=== PATIENT | female | born 1965 | race Caucasian/White ===

== ENCOUNTER 2017-11-04 20:38 | Emergency (ER) | payer OTHER, MEDICAID ==
[~2017-11-04] VITALS: Ht 170.2 cm; Wt 101.8 kg
[2017-11-04 20:41] VITALS: BP 109/70
--- NOTE | 2017-11-04 20:50 | NUR ---
PT RETURNED TO LOBBY AFTER EKG DONE
[2017-11-04] MEDS ORDERED: NITROGLYCERIN 0.4 MG TAB SL ONE (20:55)
[2017-11-04] MEDS ORDERED: ASPIRIN 325 MG TAB PO ONE (20:55)
--- NOTE | 2017-11-04 20:55 | NUR ---
52/F WITH C/O 10/10 SHARP CHEST PAIN, MIDSTERNAL, CONSTANT, NONRADIATING, NONPROVOKED X 7 DAYS. DENIES SOB/COUGH, SATS 100%RA, ALL LUNG SOUNDS CBTA. DENIES N/V/D. 86 HR EVEN AND REGULAR. DENIES ANY OTHER PAIN/INJURIES. PT PLACED ON UROLOGY PHYSICIAN AND PULSE OX PMH: SCIATICA, CHRONIC BACK PAIN
--- NOTE | 2017-11-04 21:00 | NUR ---
Patient appears to be resting comfortably in bed. Vital Signs within normal limits. Respirations even and unlabored.
[2017-11-04] MEDS ORDERED: CYCLOBENZAPRINE 10 MG TAB PO ONE (21:15)
[2017-11-04] MEDS ORDERED: KETOROLAC 30 MG/ML VIAL IM ONE (21:15)
[2017-11-04 21:19] LABS: BASOPHILS # (AUTO) 0.2 K/uL (0.00-0.22); BASOPHILS % (AUTO) 2.2 % (0.0-2.0); EOSINOPHILS # (AUTO) 0.2 K/uL (0-0.4); EOSINOPHILS % (AUTO) 2.1 % (0.0-4.0); HEMATOCRIT 35.3 % (36-48); HEMOGLOBIN 11.6 g/dL (12.0-16.0); LYMPHOCYTES % (AUTO) 19.9 % (20.5-51.1); MEAN CORPUSCULAR HEMOGLOBIN 28 pg (27-31); MEAN CORPUSCULAR HGB CONC 33 g/dL (33-37); MEAN CORPUSCULAR VOLUME 85 fL (80-94); MONOCYTES % (AUTO) 9.6 % (1.7-9.3); NEUTROPHILS # (AUTO) 6.6 K/uL (1.8-7.7); NEUTROPHILS % (AUTO) 66.2 % (42.2-75.2); PLATELET COUNT (AUTO) 275 K/uL (140-450); RED BLOOD CELL COUNT(AUTO) 4.15 MIL/uL (4.20-5.40); RED CELL DISTRIBUTION WIDTH 13.1 % (11.6-13.7)
[2017-11-04 21:31] LABS: ANION GAP 15.2 (8-16); CARBON DIOXIDE 25.2 mmol/L (21-32); CREATININE 1.5 mg/dL (0.6-1.3); POTASSIUM 3.4 mmol/L (3.5-5.1)
[2017-11-04] MEDS ORDERED: NACL 0.9% 1,000 ML IV ONE (21:35)
[2017-11-04] MEDS ORDERED: POTASSIUM CHLORIDE 20% 40 MEQ/15 ML UDC PO ONE (21:35)
[2017-11-04 21:36] LABS: ALBUMIN 3.7 g/dL (3.4-5.0); TOTAL BILIRUBIN 0.2 mg/dL (0.0-1.0)
[2017-11-04 22:50] VITALS: BP 113/68
--- NOTE | 2017-11-04 22:50 | NUR ---
Patient discharged with v/s stable. Written and verbal after care instructions given and explained. Patient verbalized understanding. Ambulatory with steady gait. All questions addressed prior to discharge. Advised to follow up with PMD.
== END 2017-11-04 22:50 | disposition home or self-care (01) ==
LOC: MED 20:38
DX: G89.29 Other chronic pain (principal); R09.89 Other specified symptoms and signs involving the circulatory and respiratory systems; M54.9 Dorsalgia, unspecified; Z76.5 Malingerer [conscious simulation]; Z88.8 Allergy status to other drugs, medicaments and biological substances
CPT/HCPCS: 36415; 71010; 80053; 83880; 84484; 85025; 93005; 99285; J1885; J7030; Q0092

== ENCOUNTER 2019-04-26 22:50 | Emergency (ER) | payer OTHER, MEDICAID ==
[~2019-04-26] VITALS: Ht 170.2 cm; Wt 91.2 kg
[2019-04-26 22:54] VITALS: BP 127/78
--- NOTE | 2019-04-26 23:02 | NUR ---
PT AMBULATED BACK TO LOBBYHERBIE
--- NOTE | 2019-04-26 23:12 | NUR ---
PT TAKEN TO BED 3
--- NOTE | 2019-04-26 23:30 | NUR ---
PT BIB SELF C/O NECK PAIN. PT STATES SUDDEN ONSET OF NECK PAIN THAT STARTED TODAY; DENIES INJURY OR TRAUMA; STATES 7/10 SHARP PAIN; NO SWELLING OR REDNESS TO SIGHT. PT ACTING APPRORPRIATLY, SPEAKING IN CLEAR AND COMPLETE SENTENCES; PATENT AIRYWAY. SAFETY PRECAUTIONS IN PLACE. PENDING JOSE ALEJANDRO HUNTLEY. PMH: ASTHMA, HTN
[2019-04-26] MEDS ORDERED: KETOROLAC 30 MG/ML VIAL IVP ONE (23:50)
[2019-04-26] MEDS ORDERED: DIAZEPAM 5 MG TAB PO ONE (23:50)
[2019-04-26] MEDS ORDERED: NACL 0.9% 1,000 ML IV ONE (23:50)
[2019-04-27 00:18] LABS: BASOPHILS % (AUTO) 0.6 % (0.0-2.0); EOSINOPHILS # (AUTO) 0.2 K/uL (0-0.4); EOSINOPHILS % (AUTO) 3.8 % (0.0-4.0); HEMATOCRIT 34.7 % (36-48); HEMOGLOBIN 11.2 g/dL (12.0-16.0); LYMPHOCYTES # (AUTO) 2.2 K/uL (2.5-16.5); LYMPHOCYTES % (AUTO) 36.5 % (20.5-51.1); MEAN CORPUSCULAR HEMOGLOBIN 28 pg (27-31); MEAN CORPUSCULAR HGB CONC 32 g/dL (33-37); MEAN CORPUSCULAR VOLUME 85.6 fL (80-94); MONOCYTES # (AUTO) 0.6 K/uL (0.8-1.0); MONOCYTES % (AUTO) 9.7 % (1.7-9.3); NEUTROPHILS # (AUTO) 2.9 K/uL (1.8-7.7); NEUTROPHILS % (AUTO) 49.4 % (42.2-75.2); PLATELET COUNT (AUTO) 209 K/uL (140-450); RED BLOOD CELL COUNT(AUTO) 4.06 MIL/uL (4.20-5.40); RED CELL DISTRIBUTION WIDTH 15.5 % (11.6-13.7); WHITE BLOOD COUNT (AUTO) 5.9 K/uL (4.8-10.8)
[2019-04-27 00:27] LABS: ANION GAP 11.4 (8-16); CARBON DIOXIDE 27.1 mmol/L (21-32); CREATININE 0.7 mg/dL (0.6-1.3); POTASSIUM 3.5 mmol/L (3.5-5.1)
[2019-04-27 00:32] LABS: ALBUMIN 3.5 g/dL (3.4-5.0); TOTAL BILIRUBIN 0.3 mg/dL (0.0-1.0)
--- NOTE | 2019-04-27 01:00 | NUR ---
ATTEMPT AT PIV MADE. UNSUCCESSFUL. NURSE AT BEDSIDE FOR ATTEMPT.
--- NOTE | 2019-04-27 02:15 | NUR ---
IV START BY RESIDENCE TO L BRACHIAL 20G, FLUSHED WELL W/O RESISTANCE; NO SWELLING OR REDNESS NOTED; PT STATES 0/10 PAIN TO SIGHT.
--- NOTE | 2019-04-27 03:10 | NUR ---
PT TAKEN TO CT
--- NOTE | 2019-04-27 03:33 | NUR ---
PT RETURN FROM CT
--- NOTE | 2019-04-27 04:56 | NUR ---
Patient discharged with v/s stable. Patient acting appropriatly, speaking in clear and complete sentences, states she is ready to go home so she can sleep, pain 3/10 at this time. Written and verbal after care instructions given and explained. Patient alert, oriented and verbalized understanding of instructions. Ambulatory with steady gait. All questions addressed prior to discharge. ID band removed. Patient advised to follow up with PMD. Rx of Valium, and Naprosyn given. Patient educated on indication of medication including possible reaction and side effects. Opportunity to ask questions provided and answered.
[2019-04-27 05:45] VITALS: BP 150/90
--- NOTE | 2019-04-28 13:14 | NUR ---
Late entry. Confirmed with RN that 1000 ml 0.9NS IV completed at 0320
== END 2019-04-27 04:56 | disposition home or self-care (01) ==
LOC: MED 22:50
DX: M54.12 Radiculopathy, cervical region (principal); J45.909 Unspecified asthma, uncomplicated; I10 Essential (primary) hypertension; Z98.890 Other specified postprocedural states; Z88.5 Allergy status to narcotic agent; Z88.6 Allergy status to analgesic agent; Z88.8 Allergy status to other drugs, medicaments and biological substances
CPT/HCPCS: 36415; 70491; 80053; 85025; 96374; 99284; J1885; J7030; Q9967

== ENCOUNTER 2021-06-03 10:22 | Emergency (ER) | payer OTHER, MEDICAID ==
[~2021-06-03] VITALS: Ht 170.2 cm; Wt 96.2 kg
[2021-06-03 10:38] VITALS: BP 157/111
--- NOTE | 2021-06-03 10:44 | NUR ---
Patient ambulated to bed 9 with family. RN evaluating the patient at bedside.
--- NOTE | 2021-06-03 10:45 | NUR ---
Pt presents to ED c/o chest pain and shortness of breathe x1 month worsening today. Pt report CP is sharp constant, non radiating. Pain level 8/10. Respirations even and unlabored. O2 saturation 98% on RA. Pt awake and alert. A&Ox4. VSS. Pt on cardiac tele monitor. Bed in lowest position, hob elevated, bed rail up x1. Allergies: acetaminophen, hydrocodone, baclofen, phenothyazine, tramadol Med hx: pain syndrome, chronic right knee pain, asthma, HTN
--- NOTE | 2021-06-03 10:49 | NUR ---
EMT at bedside for EKG
--- NOTE | 2021-06-03 11:03 | NUR ---
MD Samaniego evaluating pt at bedside
[2021-06-03] MEDS ORDERED: ONDANSETRON 4 MG/2 ML VIAL IVP ONE (11:15)
[2021-06-03] MEDS ORDERED: NACL 0.9% 1,000 ML IV ONE (11:15)
[2021-06-03] MEDS ORDERED: MORPHINE SULFATE 4 MG/ML SYR IVP ONE ×2 (11:15→11:30)
--- NOTE | 2021-06-03 11:15 | NUR ---
Pt refusing Morphine. MD Samaniego made aware. Awaiting for new orders.
--- NOTE | 2021-06-03 11:24 | NUR ---
Pt refusing Fentanyl medication. MD Samaniego made aware.
[2021-06-03] MEDS ORDERED: fentaNYL citrate 0.05 MG/ML VIAL IVP ONE (11:25)
[2021-06-03 11:31] LABS: BASOPHILS % (AUTO) 0.3 % (0.0-2.0); EOSINOPHILS # (AUTO) 0.3 K/uL (0-0.4); EOSINOPHILS % (AUTO) 3.1 % (0.0-4.0); HEMATOCRIT 32.6 % (36-48); HEMOGLOBIN 10.5 g/dL (12.0-16.0); MEAN CORPUSCULAR HEMOGLOBIN 29 pg (27-31); MEAN CORPUSCULAR HGB CONC 32 g/dL (33-37); MEAN CORPUSCULAR VOLUME 88.8 fL (80-94); MONOCYTES # (AUTO) 0.7 K/uL (0.8-1.0); MONOCYTES % (AUTO) 7.4 % (1.7-9.3); NEUTROPHILS # (AUTO) 6.4 K/uL (1.8-7.7); NEUTROPHILS % (AUTO) 68.2 % (42.2-75.2); PLATELET COUNT (AUTO) 237 K/uL (140-450); RED BLOOD CELL COUNT(AUTO) 3.67 MIL/uL (4.20-5.40); RED CELL DISTRIBUTION WIDTH 14.7 % (11.6-13.7); WHITE BLOOD COUNT (AUTO) 9.4 K/uL (4.8-10.8)
--- NOTE | 2021-06-03 11:45 | NUR ---
Unable to successfully attempt IV. MD Samaniego made aware.
[2021-06-03 11:46] LABS: ALBUMIN 3.5 g/dL (3.4-5.0); ANION GAP 10.3 (8-16); CARBON DIOXIDE 24.5 mmol/L (21-32); CREATININE 0.7 mg/dL (0.6-1.3); POTASSIUM 3.8 mmol/L (3.5-5.1); TOTAL BILIRUBIN 0.2 mg/dL (0.0-1.0)
[2021-06-03] MEDS ORDERED: MORPHINE SULFATE 4 MG/ML SYR IM ONE (11:50)
--- NOTE | 2021-06-03 11:50 | NUR ---
MD Samaniego gave verbal order to give Zofran 4mg IM and Morphine 4mg IM.
[2021-06-03] MEDS ORDERED: ONDANSETRON 4 MG/2 ML VIAL IM ONE (11:55)
--- NOTE | 2021-06-03 12:11 | NUR ---
Pt to CT via wheelchair
--- NOTE | 2021-06-03 12:27 | NUR ---
Pt back from CT
--- NOTE | 2021-06-03 12:27 | NUR ---
Patient returned from CT scan.
--- NOTE | 2021-06-03 12:35 | NUR ---
Pt placed on cardiac tele monitor. VSS. Pt requesting to speak to MD Samaniego.
--- NOTE | 2021-06-03 12:37 | NUR ---
Pt going to CT via wheelchair
--- NOTE | 2021-06-03 12:55 | NUR ---
Pt back from CT
--- NOTE | 2021-06-03 13:05 | NUR ---
PATIENT IS COMPLAINING OF SHOULDERS FEELING LIKE THEY ARE TIGHTENING, PATIENT IS SHRUGGING SHOULDERS, ENCOURAGED TO RELAX, WARM BLANKET APPLIED FOR COMFORT.
--- NOTE | 2021-06-03 13:21 | NUR ---
DR CASTILLO AT BEDSIDE FOR REEVAL, DISCUSSING RESULTS AND PLAN OF CARE
--- NOTE | 2021-06-03 13:38 | NUR ---
Heel warmers applied to pt shoulders
[2021-06-03] MEDS ORDERED: ACET-8386 PO (13:49)
[2021-06-03] MEDS ORDERED: AZIT250T4 PO (13:49)
[2021-06-03] MEDS ORDERED: CYCL-711 PO (13:49)
[2021-06-03] MEDS ORDERED: ONDA-24 PO (13:49)
[2021-06-03 14:01] VITALS: BP 171/91
== END 2021-06-03 14:05 | disposition home or self-care (01) ==
LOC: MED 10:22
DX: J18.9 Pneumonia, unspecified organism (principal); G89.29 Other chronic pain; D17.1 Benign lipomatous neoplasm of skin and subcutaneous tissue of trunk; J45.909 Unspecified asthma, uncomplicated; I10 Essential (primary) hypertension; Z79.899 Other long term (current) drug therapy; Z88.8 Allergy status to other drugs, medicaments and biological substances; Z88.5 Allergy status to narcotic agent; Z88.6 Allergy status to analgesic agent
CPT/HCPCS: 36415; 71250; 74176; 80053; 84484; 85025; 93005; 96372; 99285; J2270; J2405

== ENCOUNTER 2022-07-20 02:29 | Emergency (ER) | payer OTHER, MEDICAID ==
[~2022-07-20] VITALS: Ht 170.2 cm; Wt 90.7 kg
[~2022-07-20 02:29] MED LIST: ACET-8386 PO; AZIT250T4 PO; CYCL-711 PO; ONDA-188 PO
[2022-07-20 02:33] VITALS: BP 130/73
--- NOTE | 2022-07-20 02:33 | NUR ---
to bed via wheelchair
--- NOTE | 2022-07-20 02:44 | NUR ---
rt leg pain,and swelling, back since jul 09
[2022-07-20] MEDS ORDERED: IBUPROFEN 800 MG TAB PO ONE (03:15)
--- NOTE | 2022-07-20 03:23 | NUR ---
PT TO XRAY VIA WC
--- NOTE | 2022-07-20 03:40 | NUR ---
RETURNED FROM X-RAY
[2022-07-20] MEDS ORDERED: IBUP-1878 PO (04:09)
[2022-07-20 04:23] VITALS: BP 130/73
--- NOTE | 2022-07-20 04:23 | NUR ---
Patient discharged with v/s stable. Written and verbal after care instructions given and explained. Patient verbalized understanding. Wheel Chair Assisted with to car. All questions addressed prior to discharge. Advised to follow up with PMD.
== END 2022-07-20 04:23 | disposition home or self-care (01) ==
LOC: MED 02:29
DX: S89.91XA Unspecified injury of right lower leg, initial encounter (principal); J45.909 Unspecified asthma, uncomplicated; I10 Essential (primary) hypertension; Z88.5 Allergy status to narcotic agent; Z88.6 Allergy status to analgesic agent; Z88.8 Allergy status to other drugs, medicaments and biological substances; Z79.899 Other long term (current) drug therapy; V89.2XXA Person injured in unspecified motor-vehicle accident, traffic, initial encounter; Y93.89 Activity, other specified; Y92.89 Other specified places as the place of occurrence of the external cause; Y99.8 Other external cause status
CPT/HCPCS: 73562; 99283

== ENCOUNTER 2022-12-05 16:07 | Emergency (ER) | payer OTHER, MEDICAID ==
[~2022-12-05] VITALS: Ht 167.6 cm; Wt 83.9 kg
[~2022-12-05 16:07] MED LIST changes: -ACET-8386 PO; +ACET-8905 PO; -AZIT250T4 PO; +IBUP-1878 PO; +LISI20TA29 PO
[2022-12-05 16:16] VITALS: BP 169/103
--- NOTE | 2022-12-05 16:49 | NUR ---
LAB AT BEDSIDE
--- NOTE | 2022-12-05 17:00 | NUR ---
57YO FEMALE PT C/O N/V/D-blood AND EPIGASTRIC PAIN XYESTERDAY. REPORTS ONSET AFTER DINNER. NOTES INTERMITTENT SHARP R CHEST PAIN W/ RADIATION TO NECK. EPISODES LASTING 15-20MIN. ABD NON DISTENDED OR TENDER, ACTIVE X4. PT AAOX4 , HOB POSITIIONED PER COMFORT. HX: HTN, FIBROMYLAGIA, DEGENERATIVE DISC DISEASE, ARTHRITIS ALLERGIES: TYLENOL, HYDROCODONE
[2022-12-05 17:14] LABS: BASOPHILS # (AUTO) 0.1 K/uL (0.00-0.22); BASOPHILS % (AUTO) 0.6 % (0.0-2.0); EOSINOPHILS # (AUTO) 0.3 K/uL (0-0.4); EOSINOPHILS % (AUTO) 3.2 % (0.0-4.0); HEMATOCRIT 37.4 % (36-48); HEMOGLOBIN 12.2 g/dL (12.0-16.0); LYMPHOCYTES # (AUTO) 2.2 K/uL (2.5-16.5); LYMPHOCYTES % (AUTO) 27.2 % (20.5-51.1); MEAN CORPUSCULAR HEMOGLOBIN 29 pg (27-31); MEAN CORPUSCULAR HGB CONC 33 g/dL (33-37); MEAN CORPUSCULAR VOLUME 87.2 fL (80-94); MONOCYTES # (AUTO) 0.7 K/uL (0.8-1.0); MONOCYTES % (AUTO) 8.9 % (1.7-9.3); NEUTROPHILS # (AUTO) 4.9 K/uL (1.8-7.7); NEUTROPHILS % (AUTO) 60.1 % (42.2-75.2); PLATELET COUNT (AUTO) 242 K/uL (140-450); RED BLOOD CELL COUNT(AUTO) 4.28 MIL/uL (4.20-5.40); RED CELL DISTRIBUTION WIDTH 13.9 % (11.6-13.7); WHITE BLOOD COUNT (AUTO) 8.1 K/uL (4.8-10.8)
[2022-12-05 17:42] LABS: ALBUMIN 3.8 g/dL (3.4-5.0); ANION GAP 12.6 (8-16); CARBON DIOXIDE 25.8 mmol/L (21-32); CREATININE 0.8 mg/dL (0.6-1.3); POTASSIUM 3.4 mmol/L (3.5-5.1); TOTAL BILIRUBIN 0.2 mg/dL (0.0-1.0)
[2022-12-05] MEDS ORDERED: ALUMINUM HYD/MAG/SIMETHICONE 30 ML UDC PO ONE (17:55)
[2022-12-05] MEDS ORDERED: ONDANSETRON 4 MG ODT PO ONE (17:55)
[2022-12-05 18:30] VITALS: BP 145/88
[2022-12-05] MEDS ORDERED: POTASSIUM CHLORIDE 10 MEQ TABER PO ONE ×2 (18:35→19:20)
[2022-12-05 18:39] LABS: APPEARANCE,URINE CLEAR (CLEAR); BILIRUBIN,URINE NEGATIVE (NEGATIVE); BLOOD, URINE NEGATIVE (NEGATIVE); COLOR,URINE YELLOW (YELLOW); LEUKOCYTE ESTERASE ,URINE NEGATIVE (NEGATIVE); NITRITE, URINE NEGATIVE (NEGATIVE); PH,URINE 6.5 (5.0-9.0); UGLUCOSE NEGATIVE (NEGATIVE)
[2022-12-05] MEDS ORDERED: ONDA-188 SL (18:55)
[2022-12-05] MEDS ORDERED: ATA25 PO (18:55)
--- NOTE | 2022-12-05 19:22 | NUR ---
Patient discharged with v/s stable. Written and verbal after care instructions FOR VIRAL GASTROENTERIS , ANXIETY given and explained. Patient alert, oriented and verbalized understanding of instructions. Ambulatory with steady gait. All questions addressed prior to discharge. ID band removed. Patient advised to follow up with PMD. Rx of ATARAX AND ZOFRAN given. Opportunity to ask questions provided and answered.
--- NOTE | 2022-12-05 20:24 | NUR ---
The patient's care was reviewed and supervised by Elaina Borges RN, RN.
== END 2022-12-05 19:22 | disposition home or self-care (01) ==
LOC: MED 16:07
DX: A08.4 Viral intestinal infection, unspecified (principal); I10 Essential (primary) hypertension; J45.909 Unspecified asthma, uncomplicated; M79.7 Fibromyalgia; Z88.5 Allergy status to narcotic agent; Z88.8 Allergy status to other drugs, medicaments and biological substances; Z91.013 Allergy to seafood; Z79.899 Other long term (current) drug therapy
CPT/HCPCS: 36415; 80053; 81003; 83690; 85025; 99284; Q0162

== ENCOUNTER 2022-12-15 12:18 | Emergency (ER) | payer OTHER, MEDICAID ==
[~2022-12-15] VITALS: Ht 170.2 cm; Wt 99.8 kg
[~2022-12-15 12:18] MED LIST changes: +ATA25 PO; +ONDA-188 SL
[2022-12-15 12:27] VITALS: BP 159/103
--- NOTE | 2022-12-15 12:33 | NUR ---
PT W/C ASSISTED TO ER BED 4
[2022-12-15] MEDS ORDERED: LIDOCAINE 5% 1 EA PATCH TP SCH (13:15)
--- NOTE | 2022-12-15 13:29 | NUR ---
RAD AT BEDSIDE
[2022-12-15 13:41] LABS: BASOPHILS # (AUTO) 0.1 K/uL (0.00-0.22); BASOPHILS % (AUTO) 0.8 % (0.0-2.0); EOSINOPHILS # (AUTO) 0.4 K/uL (0-0.4); EOSINOPHILS % (AUTO) 5.5 % (0.0-4.0); HEMATOCRIT 37.3 % (36-48); HEMOGLOBIN 12.1 g/dL (12.0-16.0); LYMPHOCYTES % (AUTO) 31.7 % (20.5-51.1); MEAN CORPUSCULAR HEMOGLOBIN 28 pg (27-31); MEAN CORPUSCULAR HGB CONC 32 g/dL (33-37); MEAN CORPUSCULAR VOLUME 87.2 fL (80-94); MONOCYTES # (AUTO) 0.6 K/uL (0.8-1.0); MONOCYTES % (AUTO) 9.6 % (1.7-9.3); NEUTROPHILS # (AUTO) 3.4 K/uL (1.8-7.7); NEUTROPHILS % (AUTO) 52.4 % (42.2-75.2); PLATELET COUNT (AUTO) 212 K/uL (140-450); RED BLOOD CELL COUNT(AUTO) 4.27 MIL/uL (4.20-5.40); RED CELL DISTRIBUTION WIDTH 14.1 % (11.6-13.7); WHITE BLOOD COUNT (AUTO) 6.4 K/uL (4.8-10.8)
[2022-12-15] MEDS ORDERED: MORPHINE SULFATE 4 MG/ML SYR IM ONE (13:50)
[2022-12-15 13:55] LABS: ALBUMIN 3.7 g/dL (3.4-5.0); ANION GAP 12.9 (8-16); CARBON DIOXIDE 26.9 mmol/L (21-32); CREATININE 0.7 mg/dL (0.6-1.3); POTASSIUM 3.8 mmol/L (3.5-5.1); TOTAL BILIRUBIN 0.3 mg/dL (0.0-1.0)
--- NOTE | 2022-12-15 13:56 | NUR ---
PT MEDICATED W MORPHINE, LIDOPATCH APPLIED TO RIGHT NECK, PAIN 9
--- NOTE | 2022-12-15 15:00 | NUR ---
A/O TIMES 4, NAD, NECK AND SHOULDER PAIN 3/, O2 SAT 98% RA, SR UP TIMES 2
[2022-12-15] MEDS ORDERED: ALUMINUM HYD/MAG/SIMETHICONE 30 ML UDC PO ONE (15:40)
[2022-12-15] MEDS ORDERED: MAG355OR2 PO (16:43)
[2022-12-15 16:55] VITALS: BP 149/87
== END 2022-12-15 16:57 | disposition home or self-care (01) ==
LOC: MED 12:18
DX: M54.2 Cervicalgia (principal); R20.0 Anesthesia of skin
CPT/HCPCS: 36415; 70450; 71045; 72125; 80053; 84484; 85025; 96374; 99285; J2270; Q0092

== ENCOUNTER 2023-01-25 10:18 | Emergency (ER) | payer OTHER, MEDICAID ==
[~2023-01-25] VITALS: Ht 170.2 cm; Wt 98.4 kg
[~2023-01-25 10:18] MED LIST changes: +MAG355OR2 PO
[2023-01-25] MEDS ORDERED: IPRATROPIUM 0.02% 0.5 MG/2.5 ML NEBU INH ONE (11:05)
[2023-01-25] MEDS ORDERED: predniSONE 20 MG TAB PO ONE (11:05)
[2023-01-25] MEDS ORDERED: KETOROLAC 30 MG/ML VIAL IM ONE (11:05)
[2023-01-25] MEDS ORDERED: DEXT118S25 PO (11:44)
[2023-01-25] MEDS ORDERED: PSEU120T23 PO (11:44)
[2023-01-25] MEDS ORDERED: BENZ200C4 PO (11:44)
[2023-01-25] MEDS ORDERED: PRED20TA5 PO (11:44)
[2023-01-25] MEDS ORDERED: ALBU0.0912 IH (11:44)
[2023-01-25] MEDS ORDERED: ALBU-71 NEB (12:08)
== END 2023-01-25 12:19 | disposition home or self-care (01) ==
LOC: MED 10:18
DX: J45.901 Unspecified asthma with (acute) exacerbation (principal); J06.9 Acute upper respiratory infection, unspecified; Z20.822 Contact with and (suspected) exposure to COVID-19; I10 Essential (primary) hypertension; Z79.899 Other long term (current) drug therapy; Z79.1 Long term (current) use of non-steroidal anti-inflammatories (NSAID); Z79.891 Long term (current) use of opiate analgesic; Z88.8 Allergy status to other drugs, medicaments and biological substances; Z88.5 Allergy status to narcotic agent; Z91.013 Allergy to seafood
CPT/HCPCS: 71046; 87426; 87804; 94640; 96372; 99284; J1885; J7512; J7644

== ENCOUNTER 2023-02-06 12:41 | Emergency (ER) | payer OTHER, MEDICAID ==
[~2023-02-06] VITALS: Ht 170.2 cm; Wt 95.3 kg
[~2023-02-06 12:41] MED LIST changes: +ALBU-71 NEB; +BENZ200C4 PO; +DEXT118S25 PO; +PRED20TA5 PO; +PSEU120T23 PO
[2023-02-06 13:10] VITALS: BP 120/67
--- NOTE | 2023-02-06 13:14 | NUR ---
57/F WALKED IN C/O COUGH. PT WAS SEEN 5 DAYS AGO FOR SAME S/SX AND WAS PX MEDS. PT REPORTS MEDS HELPED WITH THE S/SX BUT RAN OUT OF MEDS. ON ROOM AIR, NO ACUTE DISTRESS NOTED, AFEBRILE PMH: HTN, ASTHMA
--- NOTE | 2023-02-06 13:58 | NUR ---
CALLED BY AUTOMATION MANAGER;NO ANSWER
--- NOTE | 2023-02-06 14:13 | NUR ---
CALLED BY XRAY AND FOR EKG. NO ANSWER.
--- NOTE | 2023-02-06 14:22 | NUR ---
PT CALLED IN LOBBY. NO ANSWER.
--- NOTE | 2023-02-06 15:00 | NUR ---
PATIENT ELOPED FROM FACILITY. DISCHARGE INSTRUCTIONS NOT GIVEN TO PATIENT. DR. CORRALES NOTIFIED.
== END 2023-02-06 15:00 | disposition left against medical advice (07) ==
LOC: MED 12:41
DX: R07.89 Other chest pain (principal); R06.02 Shortness of breath; R05.9 Cough, unspecified; J45.909 Unspecified asthma, uncomplicated; I10 Essential (primary) hypertension; Z79.899 Other long term (current) drug therapy; Z79.891 Long term (current) use of opiate analgesic; Z79.1 Long term (current) use of non-steroidal anti-inflammatories (NSAID); Z88.8 Allergy status to other drugs, medicaments and biological substances; Z88.5 Allergy status to narcotic agent; Z88.6 Allergy status to analgesic agent; Z91.013 Allergy to seafood
CPT/HCPCS: 99281